=== PATIENT | female | born 1945 | race Caucasian/White ===

== ENCOUNTER 2022-02-25 09:10 | Day surgery (SDC) | payer MEDICARE, OTHER ==
[2022-02-23 09:45] VITALS: BMI 24.3
[~2022-02-25 09:10] MED LIST: LACTATED RINGERS 1,000 ML IV SCH
[2022-02-25] MEDS ORDERED: LIDOCAINE 1% (10MG/ML) FOR IV START INTRADERMA ONE (09:45)
[2022-02-25 09:54] VITALS: TEMP 98.3
[2022-02-25] MEDS ORDERED: PROPOFOL 10 MG/ML 20 ML VIAL IV ONE (10:43)
--- NOTE | 2022-02-25 11:00 | P.PCN ---
Date of Procedure: 02/25/22 Procedure(s) Performed: BRIEF HISTORY: Patient is a 76-year-old pleasant white female scheduled for an elective colonoscopy as a part of long-standing history of ulcerative colitis diagnosed 20 years ago.. Recently was noted to have Hemoccult-positive stool. Her last colonoscopy was 8 years ago. PROCEDURE PERFORMED: Colonoscopy with biopsy. PREOPERATIVE DIAGNOSIS: Long-standing History of ulcerative colitis and Hemoccult-positive stool. IV sedation per Anesthesia. PROCEDURE: After informed consent was obtained, the patient, was brought into the endoscopy unit. IV sedation was administered by Anesthesia under continuous monitoring. Digital rectal examination was normal. Initially the Olympus CF-160 flexible video colonoscope was then inserted in the rectum, gradually advanced into the cecum without any difficulty. Careful examination was performed as the scope was gradually being withdrawn. Ileocecal valve and the appendiceal orifice were visualized and appeared normal. Prep was excellent. Mucosa of the cecum, ascending colon, transverse colon, descending colon, sigmoid colon, and rectum had multiple scattered pseudopolyps throughout the colon and random biopsies were done from the cecum to rectum at every 10 cm into well. There was no evidence of active colitis noted.. Retroflexion was performed in the rectum and no lesions were seen. The patient tolerated the procedure well. IMPRESSION: Multiple scattered pseudopolyps throughout the entire colon but no evidence of active colitis status post random biopsies RECOMMENDATIONS: Findings of this examination were discussed with the patient as well as his family. She was advised to follow with the biopsy results. If t he biopsy does not show any evidence of dysplasia, she can have a repeat colonoscopy in 2 years.
[2022-02-25 11:21] VITALS: BP 106/67; PULSE 72; RESP 18
== END 2022-02-25 12:00 | disposition home or self-care (01) ==
LOC: ORWHC2ENDO 09:10
PROVIDERS: ATTEND Internal Medicine Gastroenterology
DX: K51.90 Ulcerative colitis, unspecified, without complications (principal); Z79.899 Other long term (current) drug therapy; J44.9 Chronic obstructive pulmonary disease, unspecified; F17.200 Nicotine dependence, unspecified, uncomplicated; Z79.891 Long term (current) use of opiate analgesic
CPT/HCPCS: 88305; 45380; J2704